=== PATIENT | male | born 1990 | race Caucasian/White ===

== ENCOUNTER 2020-03-30 03:54 | Emergency (ER) | payer BC, OTHER ==
[2020-03-30] MEDS ORDERED: HYDROmorphone 0.5 MG/0.5 ML Syringe IVPUSH ONE (04:27)
[2020-03-30] MEDS ORDERED: Ondansetron 4 MG/2 ML SDV IVPUSH ONE (04:27)
--- NOTE | 2020-03-30 04:32 | EDM.PDOC ---
ED HPI GENERAL MEDICAL PROBLEM - General Chief Complaint: Abdominal Pain Stated Complaint: ABD PAIN Time Seen by Provider: 03/30/20 04:15 Source of Information: Reports: Patient History Limitations: Reports: No Limitations - History of Present Illness INITIAL COMMENTS - FREE TEXT/NARRATIVE: 29-year-old male with lower abdominal pain for the past 36 to 48 hours. Today it is gotten very intense, more right-sided and central in location and he is developed some peritoneal irritation. No fevers or chills. No significant radiation to his back. He consistently has the urge to urinate or defecate but it does not change the pain. Denies nausea or vomiting, no diarrhea. He has had some chronic constipation issues. Onset: Gradual Duration: Day(s): (2 days) Location: Reports: Abdomen (Lower abdomen) Improves with: Reports: None Worsens with: Reports: Movement Associated Symptoms: Denies: Chest Pain, Cough, Fever/Chills, Loss of Appetite (Ate a normal supper last night), Nausea/Vomiting, Shortness of Breath Right Abdominal Pain Score (Numeric/FACES): 7 - Related Data Allergies Allergy/AdvReac Type Severity Reaction Status Date / Time No Known Allergies Allergy Verified 03/30/20 04:08 Home Meds: Home Meds NK [No Known Home Meds] 06/04/14 [History] Past Medical History - Past Health History Medical/Surgical History: Denies Medical/Surgical History HEENT History: Reports: Allergic Rhinitis Respiratory History: Reports: Asthma Gastrointestinal History: Reports: Chronic Constipation - Infectious Disease History Infectious Disease History: Reports: Chicken Pox, Mononucleosis Social & Family History - Tobacco Use Smoking Status *Q: Former Smoker Used Tobacco, but Quit: Yes Month/Year Tobacco Last Used: 01/2020 - Caffeine Use Caffeine Use: Reports: Coffee, Soda, Tea - Recreational Drug Use Recreational Drug Use: No ED ROS GENERAL - Review of Systems Review Of Systems: See Below Constitutional: Reports: Malaise. Denies: Fever, Chills HEENT: Reports: No Symptoms Respiratory: Denies: Shortness of Breath Cardiovascular: Denies: Chest Pain GI/Abdominal: Reports: Abdominal Pain. Denies: Diarrhea, Nausea, Vomiting : Reports: Urgency. Denies: Dysuria Skin: Reports: No Symptoms Neurological: Denies: Headache ED EXAM, GI/ABD - Physical Exam Exam: See Below Exam Limited By: No Limitations General Appearance: Alert, Mild Distress (Fairly uncomfortable) Eyes: Bilateral: Normal Appearance (No jaundice) Head: Atraumatic Respiratory/Chest: No Respiratory Distress Cardiovascular: Regular Rate, Rhythm GI/Abdominal Exam: Soft, Guarding (Right lower quadrant), Rebound, Tender Neurological: Alert, Oriented Psychiatric: Anxious Course - Vital Signs Last Recorded V/S: Last Vital Signs Temp 97.5 F 03/30/20 04:11 Pulse 85 03/30/20 04:11 Resp 20 03/30/20 04:11 BP 138/91 H 03/30/20 04:11 Pulse Ox 100 03/30/20 04:11 - Orders/Labs/Meds Labs: Laboratory Tests 03/30/20 03/30/20 03/30/20 Range/Units 04:26 04:39 04:39 WBC 10.7 (4.5-11.0) K/uL RBC 4.67 (4.30-5.90) M/uL Hgb 14.4 (12.0-15.0) g/dL Hct 42.4 (40.0-54.0) % MCV 91 (80-98) fL MCH 31 (27-31) pg MCHC 34 (32-36) % Plt Count 178 (150-400) K/uL Neut % (Auto) 53 (36-66) % Lymph % (Auto) 31 (24-44) % [place] % (Auto) 11 H (2-6) % Eos % (Auto) 5 H (2-4) % Baso % (Auto) 1 (0-1) % Sodium 138 L (140-148) mmol/L Potassium 3.6 (3.6-5.2) mmol/L Chloride 104 (100-108) mmol/L Carbon Dioxide 24 (21-32) mmol/L Anion Gap 13.6 (5.0-14.0) mmol/L BUN 16 (7-18) mg/dL Creatinine 1.1 (0.8-1.3) mg/dL Est Cr Clr Drug Dosing TNP Estimated GFR (MDRD) > 60 (>60) Glucose 123 H (74-106) mg/dL Calcium 8.8 (8.5-10.1) mg/dL Urine Color Yellow (YELLOW) Urine Appearance Clear (CLEAR) Urine pH 5.5 (5.0-8.0) Ur Specific [place] >= 1.030 (1.008-1.030) Urine Protein Trace H (NEGATIVE) mg/dL Urine Glucose (UA) Negative (NEGATIVE) mg/dL Urine Ketones Negative (NEGATIVE) mg/dL Urine Occult Blood Large H (NEGATIVE) Urine Nitrite Negative (NEGATIVE) Urine Bilirubin Negative (NEGATIVE) Urine Urobilinogen 0.2 (0.2-1.0) EU/dL Ur Leukocyte Esterase Negative (NEGATIVE) Urine RBC 20-30 H (0-5) Urine WBC 0-5 (0-5) Ur Epithelial Cells Rare Amorphous Sediment Not seen Urine Bacteria Not seen Urine Mucus Moderate Urine Other Meds: Medications Discontinued Medications Generic Name Dose Route Start Last Admin Trade Name Freq PRN Reason Stop Dose Admin Hydromorphone HCl 0.5 mg 03/30/20 04:27 03/30/20 04:33 Dilaudid IVPUSH 03/30/20 04:28 0.5 mg ONETIME ONE Administration Ketorolac Tromethamine 30 mg 03/30/20 05:00 03/30/20 05:06 Toradol IVPUSH 03/30/20 05:01 30 mg ONETIME ONE Administration Ondansetron HCl 4 mg 03/30/20 04:27 03/30/20 04:33 Zofran IVPUSH 03/30/20 04:28 4 mg ONETIME ONE Administration Tamsulosin HCl 0.4 mg 03/30/20 05:38 03/30/20 05:47 Flomax PO 03/30/20 05:39 0.4 mg ONETIME ONE Administration - Re-Assessments/Exams Free Text/Narrative Re-Assessment/Exam: 03/30/20 04:33 An IV was started, patient was given 0.5 mg of IV Dilaudid and 4 mg IV Zofran. CBC and BMP were obtained, patient was sent back for an abdomen pelvis CT without contrast. 03/30/20 05:41 Initial review of the CT showed a likely very small stone at the distal ureter with mild hydronephrosis. Patient was then given 30 mg of IV Toradol. When the formal report came back, he was already feeling much better after the Toradol. IMPRESSION: 1. Nephrolithiasis with mild right hydronephrosis and obstructing 2 millimeter right ureterovesicular junction stone. 2. Fatty infiltration of the liver. Patient was also given 0.4 mg of oral Flomax and 10 additional doses of ketorolac to take every 4-6 hours over the next 24 to 48 hours. If he worsens such as uncontrolled pain, vomiting the medication or develops a fever he should return for recheck otherwise he will likely pass this in the next several hours. Departure - Departure Time of Disposition: 05:56 Disposition: Home, Self-Care 01 Clinical Impression: Renal colic on right side, Nephrolithiasis - Discharge Information Instructions: Kidney Stones, [id number], Dietary Guidelines to Help Prevent Kidney Stones Referrals: PCP,None [Primary Care Provider] - Forms: ED Department Discharge Care Plan Goals: Take 1 pain pill every 4-6 hours for the next 24 to 48 hours and return anytime if worsening such as uncontrolled pain, vomiting the medication or fever. Sepsis Event Note (ED) - Evaluation Sepsis Screening Result: No Definite Risk
[2020-03-30] MEDS ORDERED: Ketorolac 30 MG/ML SDV IVPUSH ONE (05:00)
--- NOTE | 2020-03-30 05:22 | CRLCT ---
INDICATION: Lower abdominal pain TECHNIQUE: Axial images were obtained from the diaphragm to the pubic symphysis. Reformats were obtained in the coronal and sagittal plane. IV Contrast: None Oral Contrast: None COMPARISON: None. FINDINGS: Lower chest: Unremarkable. Liver: Diffusely decreased density of the liver with focal sparing adjacent to the gallbladder fossa. Gallbladder and bile ducts: Unremarkable. No stones or inflammation. No biliary dilatation. Spleen: Unremarkable. Normal in size without mass. Pancreas: Unremarkable. No mass or inflammation. Adrenal glands: Unremarkable. No nodules. Kidneys: Kidneys are normal in contour with mild right hydronephrosis and obstructing 2 millimeter stone at the right ureterovesicular junction. Vasculature: Unremarkable. GI tract: Unremarkable. No dilated bowel or focal inflammation. Unremarkable appendix. Pelvis: Unremarkable. Bones: Unremarkable for age. IMPRESSION: 1. Nephrolithiasis with mild right hydronephrosis and obstructing 2 millimeter right ureterovesicular junction stone. 2. Fatty infiltration of the liver. Please note that all CT scans at this facility use dose modulation, iterative reconstruction, and/or weight-based dosing when appropriate to reduce radiation dose to as low as reasonably achievable. Dictated by Valeriano De Oliveira MD @ Mar 30 2020 5:17AM Signed by Dr. Valeriano De Oliveira @ Mar 30 2020 5:21AM
[2020-03-30] MEDS ORDERED: Tamsulosin 0.4 MG Cap.ER PO ONE (05:38)
== END 2020-03-30 05:58 | disposition home or self-care (01) ==
LOC: JP.ED 03:54
DX: N13.2 Hydronephrosis with renal and ureteral calculous obstruction (principal); J45.909 Unspecified asthma, uncomplicated; Z87.891 Personal history of nicotine dependence
CPT/HCPCS: 36415; 74176; 80048; 81001; 85025; 96374; 96375; 99284; A9270; J1170; J1885; J2405